=== PATIENT | male | born 1975 | race Hispanic/Latino ===

== ENCOUNTER 2019-11-01 01:07 | Emergency (ER) | payer OTHER ==
[~2019-11-01] VITALS: Ht 162.6 cm; Wt 88.5 kg
[2019-11-01] MEDS ORDERED: INDOMETHACIN 25 MG CAP PO ONE (01:45)
--- NOTE | 2019-11-01 02:47 | Diagnostic Imaging Report ---
FOOT RIGHT COMPLETE - 3 views HISTORY: Pain COMPARISON: None available. FINDINGS: Bones: No acute displaced fracture. Osseous alignment is within normal limits. Joints: The joint spaces are well-maintained. Soft tissues: The soft tissues appear unremarkable. IMPRESSION: No acute radiographic abnormality. Signed by: Dr. Nikolai Vilchis MD on 11/01/2019 2:43 AM
[2019-11-01 03:17] VITALS: BP 133/81
--- OUTSIDE RECORDS SUMMARY | 2019-11-04 13:02 | XMS REPORT ---
[facility] Address Unknown Phone Unavailable Care Team Providers Care Title Coordinator Name Role Phone Kenny BOURGEOIS Unavailable Unavailable Problems This patient has no known problems. Allergies, Adverse Reactions, Alerts This patient has no known allergies or adverse reactions. Medications This patient has no known medications. Results Test Description Test Time Test Comments Text Results Atomic Results Result Comments FOOT RIGHT COMPLETE 2019-11-01 02:42:00 [facility] [address] [place], [place] [address] Patient Name: SEEMA LA MR #: [id number] : 1975 Age/Sex: 44/M Req #: [id number] Adm Physician: Ordered by: LUZ ELENA BOURGEOIS MD Report #: [id number] Location: ER Room/Bed: Procedure: [id number] DX/FOOT RIGHT COMPLETE Exam Date: 11/01/19 Exam Time: 0208 REPORT STATUS: Signed FOOT RIGHT COMPLETE - 3 views HISTORY: Pain C OMPARISON: None available. FINDINGS: Bones: No acute displaced fracture. Osseous alignment is within normal limits. Joints: The joint spaces are well-maintained. Soft tissues: The soft tissues appear unremarkable. IMPRESSION: No acute radiographic abnormality. Signed by: Dr. Nikolai Du MD on 11/01/2019 2:43 AM Dictated By: NIKOLAI DU MD [id number] Transcribed By: GUSTAVO on 11/01/19242 COPY TO: LUZ ELENA BOURGEOIS MD
== END 2019-11-01 03:33 | disposition home or self-care (01) ==
LOC: ER 01:07
DX: M79.671 Pain in right foot (principal); K21.9 Gastro-esophageal reflux disease without esophagitis
CPT/HCPCS: 99283

== ENCOUNTER 2025-06-07 22:39 | Emergency (ER) | payer OTHER ==
[~2025-06-07] VITALS: Ht 154.9 cm; Wt 93.4 kg
[2025-06-07] MEDS: PREDNISONE 20 MG TAB PO ONE (23:14)
[2025-06-07] MEDS: HYDROCODONE/APAP 5MG-325MG TAB PO ONE (23:14)
[2025-06-07] MEDS: KETOROLAC TROMETHAMINE 60 MG/2 ML VIAL IM ONE (23:14)
[2025-06-08] MEDS ORDERED: INDOCIN50 MG PO (01:01)
[2025-06-08] MEDS ORDERED: HYDROCODON-ACE1 EA11 PO (01:01)
[2025-06-08] MEDS ORDERED: INDOMETHACIN50 MG PO (01:04)
[2025-06-08 02:48] VITALS: BP 131/90
[2025-06-08 02:55] VITALS: PULSE 82; RESP 16; TEMP 98.7; O2SAT 97
== END 2025-06-08 02:59 | disposition home or self-care (01) ==
LOC: FSED 23:02
DX: M25.561 Pain in right knee (principal); M10.9 Gout, unspecified; M25.461 Effusion, right knee; K21.9 Gastro-esophageal reflux disease without esophagitis
CPT/HCPCS: 73562; 96372; 99284; J1885; J7512